=== PATIENT | male | born 1990 | race Caucasian/White ===

== ENCOUNTER 2016-08-30 15:50 | Inpatient (IN) ==
--- NOTE | 2016-08-30 17:35 | History & Physical Report ---
History of Present Illness Date: 08/30/16 HPI: Yosvany is a 25 y.o. male without any significant PMH who presents with 2-3 days of fatigue, general myalgia, fevers of 101, and mild headache that starts in his upper neck and comes around his head in the front. His fevers have been on and off for the last 2-3 days. Reports mild nausea but no vomiting. Also reports some pleuritic type pain bilaterally on the side of his chest. Denies any cp, sob, joint redness/swelling or rash. Reports he has been spending lots of time outdoors in the last few weeks as [place]. [place] He saw a tick crawling on him about a week ago but didn't think it bit him. He did have a tick bite 4 years ago that led to a target like appearing rash but no further work up or tx was done at that time. Denies any weight loss but does report night sweats in the last 2-3 days. No previous episodes such as this but has been told before once that he had low platelets but then at recheck they were fine. Denies neck pain or stiffness. Pt is completely alert and oriented. Pt does report taking ibuprofen but per directions on bottle. Review of Systems Review of systems: 12 point ros negative other then what is noted in HPI PFSH Patient Stated Medical History Asthma Yes: as a child Other Musculoskeletal Yes: hand tremors Shingles Yes: June 2016 - Social History Smoking status: Never smoker Medications Home Medications Medication Instructions Recorded Confirmed Type No known Home medications [No home 08/30/16 08/30/16 History meds] Allergies Allergy/AdvReac Type Severity Reaction Status Date / Time No Known Drug Allergies Allergy Unknown Unverified 08/30/16 16:32 Exam Vital Signs: Temp Pulse Resp BP Pulse Ox 100.9 F H 99 20 153/91 H 99 08/30/16 16:00 08/30/16 16:00 08/30/16 16:00 08/30/16 16:00 08/30/16 16:00 Height: 1.96 m Weight: 78.5 kg Body Mass Index: 20.5 - Constitutional Present: no acute distress, well nourished, well developed - Routine HEENT Exam Head: Present: normocephalic, atraumatic Eye: Present: EOMI ENT: Present: mucous membranes moist - Routine Respiratory Exam Present: CTA bilaterally. Absent: wheezes - Routine Cardiovascular Exam Present: RRR, no murmur - Routine Abdominal Exam Present: soft, non distended, non tender - Routine Extremities Exam Absent: cyanosis, clubbing, edema - Routine Back/Spine/Pelvis Exam Back/Spine: Present: full ROM - Routine Skin Exam Present: intact, dry. Absent: rash - Routine Neurological Exam Present: alert, oriented X3, moving all extremities. Absent: sensory deficit, motor deficit, tremors Results - Labs CBC & Chem 7: 08/30/16 17:11 08/30/16 17:11 Assessment and Plan (1) Thrombocytopenia Current visit: Yes Status: Acute (2) Leukopenia Current visit: Yes Status: Acute (3) Fever Current visit: Yes Status: Acute Assessment and Plan: Sepsis -Fever, leukopenia, tachycardia -Tick borne illness high on list with HPI and lab findings of leukopenia, thrombocytopenia -Order-->Erlichia/anaplasmosis pcr, blood cx's, lactate, procal, crp/esr, resp viral panel, CXR, UA -Will order lyme testing since had target like rash and tick bit few years ago -IV fluids, Start doxy 100 BID Pancytopenia -Leukopenia/Thrombocytopenia -Possibly 2/2 tick borne illness, pt did take ibuprofen in the last few days -Work per above, also order HIV, Hep panel, EBV, peripheral smear Ppx -DVT-SCD Sepsis Assessment - Evaluation Sepsis screening result: No Definite Risk Hospital Course Summary Disclaimer: The visit summary below is not to be considered part of the above Progress Note. Hospital Course: 08/30/16 18:00 Pt admitted with sepsis with tick borne illness high on ddx, will do work up for tick borne and other infection while starting tx for tick borne illness.
[2016-08-30] MEDS ORDERED: NS 1,000 ML IV ONE (17:43)
[2016-08-30] MEDS: ACETAMINOPHEN 325 MG TABLET PO PRN (19:17)
[2016-08-31] MEDS: ACETAMINOPHEN 325 MG TABLET PO PRN (08:08)
[2016-08-31] MEDS: 1/2 NS 1,000 ML IV SCH ×2 (09:36→17:37)
--- NOTE | 2016-08-31 10:32 | Progress Note ---
Subjective: Pt reports he feels better this am, no fevers overnight, night sweats improved as well. Denies any cp, sob, n/v/d. Objective Vital signs: Temp Pulse Resp BP Pulse Ox 99 F 93 21 117/68 98 08/31/16 08:00 08/31/16 08:59 08/31/16 08:59 08/31/16 09:00 08/31/16 08:59 Rhythm: Normal Sinus Rhythm Weight: 79.5 kg - Constitutional Present: no acute distress, well nourished, well developed - Routine HEENT Exam Head: Present: normocephalic, atraumatic Eye: Present: EOMI - Routine Respiratory Exam Present: CTA bilaterally. Absent: wheezes - Routine Cardiovascular Exam Present: RRR, no murmur - Routine Abdominal Exam Present: soft, non distended, non tender - Routine Extremities Exam Absent: cyanosis, clubbing, edema - Routine Skin Exam Present: intact, dry, warm. Absent: rash - Routine Neurological Exam Present: alert, oriented X3 Results - Labs CBC & Chem 7: 08/31/16 04:23 08/31/16 04:23 Assessment and Plan (1) Thrombocytopenia Current visit: Yes Status: Acute (2) Leukopenia Current visit: Yes Status: Acute (3) Fever Current visit: Yes Status: Acute Assessment and Plan: Sepsis -Fever, leukopenia, tachycardia-->improved -Tick borne illness high on list with HPI and lab findings of leukopenia, thrombocytopenia -Pending-->Erlichia/anaplasmosis pcr, blood cx's NGTD, resp viral panel, CXR -Will order lyme testing since had target like rash and tick bit few years ago -Resulted-->procal 0.39, lactate wnls, crp 21, ldh 581, UA unremarkable -Cont. IV fluids, doxy 100 BID D2 -Very low suspicion for meningitis-->No meningeal signs, completely alert & oriented despite >3 days of sx's, plts low so their is some risk with LP, will hold off for now Pancytopenia -Leukopenia/Thrombocytopenia -WBC-->2.1-->2.4 -ANC ~900 -Possibly 2/2 tick borne illness, pt did take ibuprofen in the last few days -Pending-->Hep panel, EBV, peripheral smear -Resulted-->HIV negative Mild Hypernatremia -Will do 1/2NS, monitor Ppx -DVT-SCD Sepsis Assessment - Evaluation Sepsis screening result: No Definite Risk Hospital Course Summary Disclaimer: The visit summary below is not to be considered part of the above Progress Note. Hospital Course: 08/30/16 18:00 Pt admitted with sepsis with tick borne illness high on ddx, will do work up for tick borne and other infection while starting tx for tick borne illness. 08/31/16 10:32 Pt seems to be improving on doxycycline, will move to floor, cont. to monitor labs and f/u on work up ordered.
[2016-09-01] MEDS ORDERED: D5W 1,000 ML IV SCH (09:30)
--- NOTE | 2016-09-01 14:34 | Progress Note ---
Subjective: Pt doing better, reports he feels better then when he came in. No fevers since starting doxy. Still having a light headache but otherwise no n/v/d, f/c. Objective Vital signs: Temp Pulse Resp BP Pulse Ox 96.9 F 83 16 139/81 99 09/01/16 12:00 09/01/16 12:00 09/01/16 12:00 09/01/16 12:00 09/01/16 12:00 Weight: 79.4 kg - Constitutional Present: no acute distress, well nourished, well developed - Routine HEENT Exam Head: Present: normocephalic, atraumatic Eye: Present: EOMI ENT: Present: mucous membranes moist - Routine Respiratory Exam Present: CTA bilaterally. Absent: wheezes - Routine Cardiovascular Exam Present: RRR, no murmur - Routine Abdominal Exam Present: soft, non distended, non tender - Routine Extremities Exam Present: no edema. Absent: cyanosis, clubbing - Routine Skin Exam Present: intact, dry. Absent: rash - Routine Neurological Exam Present: alert, oriented X3 Results - Labs CBC & Chem 7: 09/01/16 04:53 09/01/16 12:44 Assessment and Plan (1) Thrombocytopenia Current visit: Yes Status: Acute (2) Leukopenia Current visit: Yes Status: Acute (3) Fever Current visit: Yes Status: Acute Assessment and Plan: Sepsis likely 2/2 tick borne illness -Sepsis resolved, pt seems to be improving with doxy -Tick borne illness likely with HPI and lab findings of leukopenia, thrombocytopenia -Pending-->Erlichia/anaplasmosis pcr, blood cx's NGTD, resp viral panel, CXR -Will order lyme testing since had target like rash and tick bit few years ago -Resulted-->procal 0.39, lactate wnls, crp 21, ldh 581, UA unremarkable -Cont. IV fluids, doxy 100 BID D3 -initially admitted for meningitis but I have very low suspicion for meningitis- ->No meningeal signs, completely alert & oriented despite >3 days of sx's on admission, plts were low so their is some risk with LP, will hold off for now -Discussed case with of ID, agrees with current tx plan and recommends continuing to monitor pt for additional 1-2 days in the hospital Pancytopenia -Leukopenia/Thrombocytopenia -WBC-->2.1-->2.4-->2.5 -ANC 925 -Possibly 2/2 tick borne illness, pt did take ibuprofen in the last few days -Pending-->Hep panel, peripheral smear -Resulted-->HIV negative, EBV negative -Consulted of Hem/onc for further recs Mild Hypernatremia -Will do D5, monitor Ppx -DVT-SCD Sepsis Assessment - Evaluation Sepsis screening result: No Definite Risk Hospital Course Summary Disclaimer: The visit summary below is not to be considered part of the above Progress Note. Hospital Course: 08/30/16 18:00 Pt admitted with sepsis with tick borne illness high on ddx, will do work up for tick borne and other infection while starting tx for tick borne illness. 08/31/16 10:32 Pt seems to be improving on doxycycline, will move to floor, cont. to monitor labs and f/u on work up ordered. 09/01/16 14:34 Pt seems to be improving on doxycycline, discussed case with and she agrees with the likely dx of tick borne disease and recommends monitoring pt for another 1-2 days to see improvement, also consulted hem/onc to see if any other etiology of pancytopenia should be considered.
--- NOTE | 2016-09-01 16:00 | Consult Note ---
Oncology HPI - Data of Consult Patient: new to practice Consult date: 09/01/16 Requesting Physician: Deana So MD Primary Care Provider: Javy Bowman MD Family Provider: Javy Bowman MD - Consult Narrative Reason for consult: thrombocytopenia, leukopenia History of present illness: 25-year-old male, new patient to Dr. Liao presented to his PCP with complaints of fatigue, general myalgia and fever, started Monday and persisted. Intermittent nausea, no emesis. Has spent a lot of time outdoors the past few weeks. On Monday, day before illness started was at a local [employer] swimming. No known exposure to tick bite. Was admitted to [facility] after noted to have significant leukopenia/thrombocytopenia. Infectious workup is pending. Peripheral smear has been done and the results pending. At time of intake, reclining in hospital bed alone in room. He is alert and oriented. Denies weight change. Fever as noted earlier, no chills. Night sweats for the past 2-3 days. Complains of intermittent headaches and feels pressure behind both eyes. States walked in brown earlier and if turns head quickly, will get dizzy and nauseous. Denies vision changes or diplopia. No sore throat, earache, nasal drainage or other signs of infection. No cough or shortness of air. He is eating and drinking normally. No abdominal pain. Normal voiding and normal stooling, last BM yesterday. Also reports after he got up to go the bathroom today, had aching bilateral legs after he been up to the bathroom, this lasted for about 30 minutes. Denies back pain, hip pain or other aches or pains. Generalized aching when has fever. Review of Systems - Constitutional Constitutional: Present: fever(s), headache(s), night sweats - EENT Eyes: Present: as per HPI. Absent: blurry vision, loss of vision, photophobia Ears: Absent: ear pain - Cardiovascular Cardiovascular: Absent: chest pain, dyspnea on exertion - Respiratory Respiratory: Absent: cough, dyspnea on exertion - Gastrointestinal Gastrointestinal: Present: nausea. Absent: abdominal pain, change in bowel habits - Genitourinary Genitourinary: Absent: hematuria - Musculoskeletal Musculoskeletal: Present: arthralgias - Neurological Neurological: Present: dizziness, headache(s). Absent: abnormal gait - Psychiatric Psychiatric: Absent: anxiety, depression [facility] Patient Stated Medical History Asthma Yes: as a child Other Musculoskeletal Yes: hand tremors Shingles Yes: June 2016 Family History: Paternal grandfather of an unknown cancer age 78 Maternal aunt questionable ovarian cyst versus ovarian cancer- well currently No anemia or blood disorders - Social History Smoking status: Never smoker Medications Home Medications Medication Instructions Recorded Confirmed Type No known Home medications [No home 08/30/16 08/30/16 History meds] Allergies Allergy/AdvReac Type Severity Reaction Status Date / Time No Known Drug Allergies Allergy Unknown Unverified 08/30/16 16:32 Exam Vital signs: Temp Pulse Resp BP Pulse Ox 97.4 F 89 14 121/73 99 09/01/16 15:15 09/01/16 15:15 09/01/16 15:15 09/01/16 15:15 09/01/16 15:15 - Constitutional no acute distress, well nourished, well developed - Routine HEENT Exam Head: Present: normocephalic. Absent: facial swelling Eye: Present: EOMI, PERRL ENT: Present: mucous membranes moist, oropharynx clear. Absent: sinus tenderness - Routine Neck Exam Present: supple. Absent: lymphadenopathy, tenderness - Routine Respiratory Exam Present: CTA bilaterally. Absent: dyspnea - Routine Cardiovascular Exam Present: RRR, tachycardia (mild). Absent: murmur, gallop - Routine Abdominal Exam Present: soft, normoactive bowel sounds. Absent: tenderness, non distended, organomegaly - Routine Extremities Exam Present: full ROM. Absent: cyanosis, no edema - Routine Back/Spine/Pelvis Exam Back/Spine: Absent: paraspinal tenderness, vertebral tenderness - Routine Skin Exam Present: intact. Absent: petechiae, rash - Routine Neurological Exam Present: alert, oriented X3, CN II-XII intact, moving all extremities - Routine Psychiatric Exam Present: normal affect, normal thought process Oncology Results - Labs CBC & Chem 7: 09/01/16 04:53 09/01/16 12:44 Labs: Short CBC 09/01/16 Range/Units 04:53 WBC 2.5 L (4.5-11.0) T/MM3 Hgb 15.3 (13.5-17.5) GM/DL Hct 44.7 (41-53) % Plt Count 94 L (130-400) T/MM3 BMP 06/21/17 06/22/17 06/22/17 19:43 04:53 12:44 Sodium 145 H 145 H 145 H Potassium 3.9 Chloride 104 Carbon Dioxide 27 BUN 11.0 Creatinine 1.1 Glucose 98 Calcium 9.5 Liver Function 09/01/16 Range/Units 04:53 Albumin 4.5 (3.5-5.0) G/DL Assessment and Plan (1) Fever Start date: 09/01/16 (highest temperature past 24 hours 100.3 at 12 AM today.) Current visit: Yes Status: Acute (2) Leukopenia Current visit: Yes Status: Acute (3) Thrombocytopenia Current visit: Yes Status: Acute Assessment and Plan: Infectious workup pending. Peripheral smear results pending.Dr. Liao to see patient later today. Sepsis Assessment - Evaluation Sepsis screening result: No Definite Risk
[2016-09-01] MEDS: D5W 1,000 ML IV SCH (17:39)
--- NOTE | 2016-09-01 18:20 | Consult Note ---
Oncology HPI - Data of Consult Requesting Physician: Deana So MD Primary Care Provider: Javy Bowman MD Family Provider: Javy Bowman MD - Consult Narrative History of present illness: 25-year-old male, new patient to Dr. Liao presented to his PCP with complaints of fatigue, general myalgia and fever, started Monday and persisted. Intermittent nausea, no emesis. Has spent a lot of time outdoors the past few weeks. On Monday, day before illness started [place]. No known exposure to tick bite. Was admitted to [facility] after noted to have significant leukopenia/thrombocytopenia. Infectious workup is pending. Peripheral smear has been done and the results pending. At time of intake, reclining in hospital bed alone in room. He is alert and oriented. Denies weight change. Fever as noted earlier, no chills. Night sweats for the past 2-3 days. Complains of intermittent headaches and feels pressure behind both eyes. States walked in [place] earlier and if turns head quickly, will get dizzy and nauseous. Denies vision changes or diplopia. No sore throat, earache, nasal drainage or other signs of infection. No cough or shortness of air. He is eating and drinking normally. No abdominal pain. Normal voiding and normal stooling, last BM yesterday. Also reports after he got up to go the bathroom today, had aching bilateral legs after he been up to the bathroom, this lasted for about 30 minutes. Denies back pain, hip pain or other aches or pains. Generalized aching when has fever. [facility] Patient Stated Medical History Asthma Yes: as a child Other Musculoskeletal Yes: hand tremors Shingles Yes: June 2016 - Social History Smoking status: Never smoker Medications Home Medications Medication Instructions Recorded Confirmed Type No known Home medications [No home 08/30/16 08/30/16 History meds] Allergies Allergy/AdvReac Type Severity Reaction Status Date / Time No Known Drug Allergies Allergy Unknown Verified 09/01/16 16:44 Exam Vital signs: Temp Pulse Resp BP Pulse Ox 97.4 F 89 14 121/73 99 09/01/16 15:15 09/01/16 15:15 09/01/16 15:15 09/01/16 15:15 09/01/16 15:15 Oncology Results - Labs CBC & Chem 7: 09/01/16 04:53 09/01/16 17:04 Labs: Short CBC 09/01/16 Range/Units 04:53 WBC 2.5 L (4.5-11.0) T/MM3 Hgb 15.3 (13.5-17.5) GM/DL Hct 44.7 (41-53) % Plt Count 94 L (130-400) T/MM3 BMP 08/31/16 09/01/16 09/01/16 19:43 04:53 12:44 Sodium 145 H 145 H 145 H Potassium 3.9 Chloride 104 Carbon Dioxide 27 BUN 11.0 Creatinine 1.1 Glucose 98 Calcium 9.5 09/01/16 17:04 Sodium 146 H Potassium Chloride Carbon Dioxide BUN Creatinine Glucose Calcium Liver Function 09/01/16 Range/Units 04:53 Albumin 4.5 (3.5-5.0) G/DL Laboratory Tests 08/30/16 08/30/16 08/30/16 17:11 17:11 18:09 WBC 2.1 L Hgb 15.7 Plt Count 87 L Neut % (Auto) Lymph % (Auto) 27.3 [place] % (Auto) Neut # 1.1 L Sodium 147 H Potassium Creatinine Total Bilirubin 1.90 H ALT 82 H C-Reactive Protein 20.9 H Globulin 2.6 08/31/16 08/31/16 08/31/16 04:23 04:23 12:58 WBC 2.4 L Hgb 15.1 Plt Count 83 L Neut % (Auto) Lymph % (Auto) [place] % (Auto) Neut # 0.9 L Sodium 146 H 146 H Potassium Creatinine 1.1 Total Bilirubin 1.80 H ALT 81 H C-Reactive Protein Globulin 2.2 L 08/31/16 09/01/16 09/01/16 19:43 04:53 04:53 WBC 2.5 L Hgb 15.3 Plt Count 94 L Neut % (Auto) 37.6 Lymph % (Auto) 42.0 [place] % (Auto) 18.8 H Neut # 0.9 L Sodium 145 H 145 H Potassium 3.9 Creatinine 1.1 Total Bilirubin ALT C-Reactive Protein Globulin 09/01/16 09/01/16 12:44 17:04 WBC Hgb Plt Count Neut % (Auto) Lymph % (Auto) [place] % (Auto) Neut # Sodium 145 H 146 H Potassium Creatinine Total Bilirubin ALT C-Reactive Protein Globulin Assessment and Plan (1) Thrombocytopenia Current visit: Yes Status: Acute (2) Leukopenia Current visit: Yes Status: Acute (3) Fever Current visit: Yes Status: Acute Assessment and Plan: This is part of documentation from Corrine Moses earlier today. It will be a separate note because of IT issues I am not able to access that note. #1 leukopenia with neutropenia of uncertain etiology. This is following a viral prodrome associated with headache, eye pain, myalgias this is most consistent with a viral illness. He did having episode of swimming on Monday. This could be associated with tickborne illnesses, mosquito born illness, West Nile, parvovirus B19, hepatitis or mononucleosis. It is associated with thrombocytopenia. The thrombocytopenia appears to be improving. Peripheral smear is currently pending. Viral PCR is currently pending. Currently symptoms of the patient are improving with less headache. There is also less pain with eye movement. Recommendations supportive care Await serology and PCR for viral illnesses Follow CBC and LDH Sepsis Assessment - Evaluation Sepsis screening result: No Definite Risk
[2016-09-02] MEDS: D5W 1,000 ML IV SCH (07:52)
[2016-09-02] MEDS ORDERED: ACETAMINOPHEN 325 MG TABLET PO PRN (11:44)
--- NOTE | 2016-09-02 12:36 | Progress Note ---
Subjective: Pt doing well this am, reports headache is improved, no fevers or night sweats for since admission. Objective Vital signs: Temp Pulse Resp BP Pulse Ox 96 F L 87 16 125/72 98 09/02/16 09:30 09/02/16 09:30 09/02/16 09:30 09/02/16 09:30 09/02/16 09:30 Weight: 79.5 kg - Constitutional Present: no acute distress, well nourished, well developed - Routine HEENT Exam Head: Present: normocephalic, atraumatic Eye: Present: EOMI ENT: Present: mucous membranes moist - Routine Respiratory Exam Present: CTA bilaterally. Absent: wheezes - Routine Cardiovascular Exam Present: RRR, no murmur - Routine Abdominal Exam Present: soft, non distended, non tender - Routine Extremities Exam Present: no edema. Absent: cyanosis, clubbing - Routine Skin Exam Present: intact, dry, warm - Routine Neurological Exam Present: alert, oriented X3 Results - Labs CBC & Chem 7: 09/02/16 04:30 09/02/16 04:30 Assessment and Plan (1) Thrombocytopenia Current visit: Yes Status: Acute (2) Leukopenia Current visit: Yes Status: Acute (3) Fever Current visit: Yes Status: Acute Assessment and Plan: Sepsis likely 2/2 tick borne illness -Sepsis resolved, pt seems to be doing much better with doxy -Tick borne illness likely with HPI and lab findings of leukopenia, thrombocytopenia -Pending-->Erlichia/anaplasmosis pcr, blood cx's NGTD -Will order lyme testing since had target like rash and tick bit few years ago -Resulted-->procal 0.39, lactate wnls, crp 21, ldh 581, UA unremarkable, CXR report from OSH wnls, Viral resp neg -Doxy 100 BID D4 -initially admitted for meningitis but I have very low suspicion for meningitis- ->No meningeal signs, completely alert & oriented despite >3 days of sx's on admission, plts were low so their is some risk with LP, will hold off for now -Discussed case with of ID, agrees with current tx plan Pancytopenia -Leukopenia/Thrombocytopenia -WBC-->2.1-->2.4-->2.5-->2.7 -ANC 925-->891 today -Possibly 2/2 tick borne illness, pt did take ibuprofen in the last few days -Pending-->peripheral smear, parvo B19, [place] -Resulted-->HIV negative, EBV negative, hep panel negative -Consulted -->He has some concern for viral etiology and ordered further testing Mild Hypernatremia -Will do D5, monitor Ppx -DVT-SCD Sepsis Assessment - Evaluation Sepsis screening result: Sepsis Risk Hospital Course Summary Disclaimer: The visit summary below is not to be considered part of the above Progress Note. Hospital Course: 08/30/16 18:00 Pt admitted with sepsis with tick borne illness high on ddx, will do work up for tick borne and other infection while starting tx for tick borne illness. 08/31/16 10:32 Pt seems to be improving on doxycycline, will move to floor, cont. to monitor labs and f/u on work up ordered. 09/01/16 14:34 Pt seems to be improving on doxycycline, discussed case with and she agrees with the likely dx of tick borne disease and recommends monitoring pt for another 1-2 days to see improvement, also consulted hem/onc to see if any other etiology of pancytopenia should be considered. 09/02/16 12:36 Pt improving, hem/onc added more testing for viral etiologies, will discuss case with of ID and to come up with discharge plan for today or tomorrow.
--- NOTE | 2016-09-02 13:16 | Discharge Summary ---
Discharge Plan - Med Rec/Dispo Additional Instructions: Follow-up on 09/09/16 with CBC, CMP, LDH at our office. Prescriptions: No Action No known Home medications [No home meds] 0 #0 misc - Disposition 01 Discharged Home, Self-Care
--- NOTE | 2016-09-02 14:53 | Discharge Summary ---
Discharge Information Date of admission: 08/30/16 15:50 Anticipated date of discharge: 09/02/16 Attending Physician: Deana So MD Primary care physician: Javy Bowman MD Consults: 09/01/16 10:44 Physician Consult [CONS] Routine Consulting Provider: Sancho Liao Reason For Exam: pancytopenia Ordering Provider has Notified Receiving Lead: Yes 09/02/16 11:38 Physician Consult [CONS] Routine Consulting Provider: Barbara Fischer Reason For Exam: infection Ordering Provider has Notified Receiving Lead: No - Discharge Diagnosis (1) Tick-borne disease Status: Acute (2) Thrombocytopenia Status: Acute (3) Leukopenia Status: Acute (4) Fever Status: Resolved - Laboratory Labs: 09/02/16 04:30 09/02/16 04:30 Laboratory Tests 08/30/16 08/30/16 08/30/16 17:11 17:11 18:09 WBC 2.1 L RBC 5.50 Hgb 15.7 Hct 45.6 MCV 82.9 MCH 28.5 MCHC 34.4 RDW Std Deviation 41.0 Plt Count 87 L MPV 12.4 Immature Gran % (Auto) 1.0 H Neut % (Auto) 53.1 Lymph % (Auto) 27.3 [place] % (Auto) 16.7 H Eos % (Auto) 0.5 Baso % (Auto) 1.4 Neut # 1.1 L Lymph # 0.6 L [place] # 0.4 Eos # 0.0 Baso # 0.0 Abs Immat Gran (auto) 0.02 Smear Path Review ESR Turbidity < 20 Sodium 147 H Potassium 4.0 Chloride 106 Carbon Dioxide 27 Anion Gap 14 BUN 10.0 Creatinine 1.0 GFR Calculation 91 BUN/Creatinine Ratio 10 Glucose 91 Calculated Osmolality 281 H Calcium 9.5 Phosphorus Magnesium 1.9 Total Bilirubin 1.90 H Icterus Index < 2 AST 50 ALT 82 H Alkaline Phosphatase 71 Lactate Dehydrogenase 581 Creatine Kinase C-Reactive Protein Total Protein 7.3 Albumin 4.7 Globulin 2.6 Albumin/Globulin Ratio 1.8 Plasma Lactate Procalcitonin Specimen Hemolysis 18 Ur Collection Type Urine Color Urine Clarity Urine pH Ur Specific [place] Urine Protein Urine Glucose (UA) Urine Ketones Urine Occult Blood Urine Nitrate Urine Bilirubin Urine Urobilinogen Ur Leukocyte Esterase Urine RBC Urine WBC Ur Squamous Epith Cells Urine Bacteria Ur Culture Indicated? Adenovirus (PCR) B.parapertussis DNA PCR Lyme Total Antibody C. pneumoniae DNA (PCR) Coronavirus OC43 (PCR) Coronavirus HKU1 (PCR) Coronavirus 229E (PCR) Coronavirus NL63 (PCR) Hepatitis A IgM Ab Negative Hep Bs Antigen Negative Hep B Core IgM Ab Negative Hepatitis C Antibody Negative HIV 1&2 Antibody Rapid Human Metapneumovirus Influenza Type A (PCR) Influenza Type B (PCR) M. pneumoniae (PCR) Parainfluenza 1 (PCR) Parainfluenza 2 (PCR) Parainfluenza 3 (PCR) Parainfluenza 4 (PCR) RSV (PCR) Entero/Rhino (PCR) 08/30/16 08/30/16 08/30/16 18:09 18:09 18:18 WBC RBC Hgb Hct MCV MCH MCHC RDW Std Deviation Plt Count MPV Immature Gran % (Auto) Neut % (Auto) Lymph % (Auto) [place] % (Auto) Eos % (Auto) Baso % (Auto) Neut # Lymph # [place] # Eos # Baso # Abs Immat Gran (auto) Smear Path Review ESR Turbidity Sodium Potassium Chloride Carbon Dioxide Anion Gap BUN Creatinine GFR Calculation BUN/Creatinine Ratio Glucose Calculated Osmolality Calcium Phosphorus Magnesium Total Bilirubin Icterus Index AST ALT Alkaline Phosphatase Lactate Dehydrogenase Creatine Kinase 59 C-Reactive Protein 20.9 H Total Protein Albumin Globulin Albumin/Globulin Ratio Plasma Lactate 0.9 Procalcitonin 0.39 Specimen Hemolysis Ur Collection Type Urine Color Urine Clarity Urine pH Ur Specific [place] Urine Protein Urine Glucose (UA) Urine Ketones Urine Occult Blood Urine Nitrate Urine Bilirubin Urine Urobilinogen Ur Leukocyte Esterase Urine RBC Urine WBC Ur Squamous Epith Cells Urine Bacteria Ur Culture Indicated? Adenovirus (PCR) B.parapertussis DNA PCR Lyme Total Antibody C. pneumoniae DNA (PCR) Coronavirus OC43 (PCR) Coronavirus HKU1 (PCR) Coronavirus 229E (PCR) Coronavirus NL63 (PCR) Hepatitis A IgM Ab Hep Bs Antigen Hep B Core IgM Ab Hepatitis C Antibody HIV 1&2 Antibody Rapid Negative Human Metapneumovirus Influenza Type A (PCR) Influenza Type B (PCR) M. pneumoniae (PCR) Parainfluenza 1 (PCR) Parainfluenza 2 (PCR) Parainfluenza 3 (PCR) Parainfluenza 4 (PCR) RSV (PCR) Entero/Rhino (PCR) 08/30/16 08/30/16 08/30/16 18:18 18:18 19:21 WBC RBC Hgb Hct MCV MCH MCHC RDW Std Deviation Plt Count MPV Immature Gran % (Auto) Neut % (Auto) Lymph % (Auto) [place] % (Auto) Eos % (Auto) Baso % (Auto) Neut # Lymph # [place] # Eos # Baso # Abs Immat Gran (auto) Smear Path Review Sent for review ESR 2 Turbidity Sodium Potassium Chloride Carbon Dioxide Anion Gap BUN Creatinine GFR Calculation BUN/Creatinine Ratio Glucose Calculated Osmolality Calcium Phosphorus Magnesium Total Bilirubin Icterus Index AST ALT Alkaline Phosphatase Lactate Dehydrogenase Creatine Kinase C-Reactive Protein Total Protein Albumin Globulin Albumin/Globulin Ratio Plasma Lactate Procalcitonin Specimen Hemolysis Ur Collection Type Not provided Urine Color Yellow Urine Clarity Clear Urine pH 6.0 Ur Specific [place] <=1.005 L Urine Protein Negative Urine Glucose (UA) Negative Urine Ketones Negative Urine Occult Blood Negative Urine Nitrate Negative Urine Bilirubin Negative Urine Urobilinogen 0.2 Ur Leukocyte Esterase Negative Urine RBC None seen Urine WBC None seen Ur Squamous Epith Cells 5-10 Urine Bacteria None seen Ur Culture Indicated? Cult not indicated Adenovirus (PCR) B.parapertussis DNA PCR Lyme Total Antibody Negative C. pneumoniae DNA (PCR) Coronavirus OC43 (PCR) Coronavirus HKU1 (PCR) Coronavirus 229E (PCR) Coronavirus NL63 (PCR) Hepatitis A IgM Ab Hep Bs Antigen Hep B Core IgM Ab Hepatitis C Antibody HIV 1&2 Antibody Rapid Human Metapneumovirus Influenza Type A (PCR) Influenza Type B (PCR) M. pneumoniae (PCR) Parainfluenza 1 (PCR) Parainfluenza 2 (PCR) Parainfluenza 3 (PCR) Parainfluenza 4 (PCR) RSV (PCR) Entero/Rhino (PCR) 08/30/16 08/31/16 08/31/16 22:00 04:23 04:23 WBC 2.4 L RBC 5.37 Hgb 15.1 Hct 44.8 MCV 83.4 MCH 28.1 MCHC 33.7 RDW Std Deviation 41.8 Plt Count 83 L MPV 12.2 Immature Gran % (Auto) 0.0 Neut % (Auto) 37.8 Lymph % (Auto) 41.1 [place] % (Auto) 19.5 H Eos % (Auto) 0.8 Baso % (Auto) 0.8 Neut # 0.9 L Lymph # 1.0 [place] # 0.5 Eos # 0.0 Baso # 0.0 Abs Immat Gran (auto) 0.00 Smear Path Review ESR Turbidity < 20 Sodium 146 H Potassium 4.0 Chloride 106 Carbon Dioxide 28 Anion Gap 12 BUN 11.0 Creatinine 1.1 GFR Calculation 82 BUN/Creatinine Ratio 10 Glucose 95 Calculated Osmolality 280 Calcium 9.3 Phosphorus Magnesium Total Bilirubin 1.80 H Icterus Index < 2 AST 58 ALT 81 H Alkaline Phosphatase 75 Lactate Dehydrogenase Creatine Kinase C-Reactive Protein Total Protein 6.5 Albumin 4.3 Globulin 2.2 L Albumin/Globulin Ratio 2.0 Plasma Lactate 0.7 Procalcitonin Specimen Hemolysis < 15 Ur Collection Type Urine Color Urine Clarity Urine pH Ur Specific [place] Urine Protein Urine Glucose (UA) Urine Ketones Urine Occult Blood Urine Nitrate Urine Bilirubin Urine Urobilinogen Ur Leukocyte Esterase Urine RBC Urine WBC Ur Squamous Epith Cells Urine Bacteria Ur Culture Indicated? Adenovirus (PCR) B.parapertussis DNA PCR [place] Total Antibody C. pneumoniae DNA (PCR) Coronavirus OC43 (PCR) Coronavirus HKU1 (PCR) Coronavirus 229E (PCR) Coronavirus NL63 (PCR) Hepatitis A IgM Ab Hep Bs Antigen Hep B Core IgM Ab Hepatitis C Antibody HIV 1&2 Antibody Rapid Human Metapneumovirus Influenza Type A (PCR) Influenza Type B (PCR) M. pneumoniae (PCR) Parainfluenza 1 (PCR) Parainfluenza 2 (PCR) Parainfluenza 3 (PCR) Parainfluenza 4 (PCR) RSV (PCR) Entero/Rhino (PCR) 08/31/16 08/31/16 08/31/16 12:58 14:03 19:43 WBC RBC Hgb Hct MCV MCH MCHC RDW Std Deviation Plt Count MPV Immature Gran % (Auto) Neut % (Auto) Lymph % (Auto) [place] % (Auto) Eos % (Auto) Baso % (Auto) Neut # Lymph # [place] # Eos # Baso # Abs Immat Gran (auto) Smear Path Review ESR Turbidity Sodium 146 H 145 H Potassium Chloride Carbon Dioxide Anion Gap BUN Creatinine GFR Calculation BUN/Creatinine Ratio Glucose Calculated Osmolality Calcium Phosphorus Magnesium Total Bilirubin Icterus Index AST ALT Alkaline Phosphatase Lactate Dehydrogenase Creatine Kinase C-Reactive Protein Total Protein Albumin Globulin Albumin/Globulin Ratio Plasma Lactate Procalcitonin Specimen Hemolysis Ur Collection Type Urine Color Urine Clarity Urine pH Ur Specific [place] Urine Protein Urine Glucose (UA) Urine Ketones Urine Occult Blood Urine Nitrate Urine Bilirubin Urine Urobilinogen Ur Leukocyte Esterase Urine RBC Urine WBC Ur Squamous Epith Cells Urine Bacteria Ur Culture Indicated? Adenovirus (PCR) Negative B.parapertussis DNA PCR Negative [place] Total Antibody C. pneumoniae DNA (PCR) Negative Coronavirus OC43 (PCR) Negative Coronavirus HKU1 (PCR) Negative Coronavirus 229E (PCR) Negative Coronavirus NL63 (PCR) Negative Hepatitis A IgM Ab Hep Bs Antigen Hep B Core IgM Ab Hepatitis C Antibody HIV 1&2 Antibody Rapid Human Metapneumovirus Negative Influenza Type A (PCR) Negative Influenza Type B (PCR) Negative M. pneumoniae (PCR) Negative Parainfluenza 1 (PCR) Negative Parainfluenza 2 (PCR) Negative Parainfluenza 3 (PCR) Negative Parainfluenza 4 (PCR) Negative RSV (PCR) Negative Entero/Rhino (PCR) Negative 09/01/16 09/01/16 09/01/16 04:53 04:53 12:44 WBC 2.5 L RBC 5.41 Hgb 15.3 Hct 44.7 MCV 82.6 MCH 28.3 MCHC 34.2 RDW Std Deviation 40.9 Plt Count 94 L MPV 11.9 Immature Gran % (Auto) 0.0 Neut % (Auto) 37.6 Lymph % (Auto) 42.0 [place] % (Auto) 18.8 H Eos % (Auto) 0.8 Baso % (Auto) 0.8 Neut # 0.9 L Lymph # 1.0 [place] # 0.5 Eos # 0.0 Baso # 0.0 Abs Immat Gran (auto) 0.00 Smear Path Review ESR Turbidity < 20 Sodium 145 H 145 H Potassium 3.9 Chloride 104 Carbon Dioxide 27 Anion Gap 14 BUN 11.0 Creatinine 1.1 GFR Calculation 82 BUN/Creatinine Ratio 10 Glucose 98 Calculated Osmolality 278 Calcium 9.5 Phosphorus 4.0 Magnesium 1.8 Total Bilirubin Icterus Index < 2 AST ALT Alkaline Phosphatase Lactate Dehydrogenase Creatine Kinase C-Reactive Protein Total Protein Albumin 4.5 Globulin Albumin/Globulin Ratio Plasma Lactate Procalcitonin Specimen Hemolysis < 15 Ur Collection Type Urine Color Urine Clarity Urine pH Ur Specific [place] Urine Protein Urine Glucose (UA) Urine Ketones Urine Occult Blood Urine Nitrate Urine Bilirubin Urine Urobilinogen Ur Leukocyte Esterase Urine RBC Urine WBC Ur Squamous Epith Cells Urine Bacteria Ur Culture Indicated? Adenovirus (PCR) B.parapertussis DNA PCR [place] Total Antibody C. pneumoniae DNA (PCR) Coronavirus OC43 (PCR) Coronavirus HKU1 (PCR) Coronavirus 229E (PCR) Coronavirus NL63 (PCR) Hepatitis A IgM Ab Hep Bs Antigen Hep B Core IgM Ab Hepatitis C Antibody HIV 1&2 Antibody Rapid Human Metapneumovirus Influenza Type A (PCR) Influenza Type B (PCR) M. pneumoniae (PCR) Parainfluenza 1 (PCR) Parainfluenza 2 (PCR) Parainfluenza 3 (PCR) Parainfluenza 4 (PCR) RSV (PCR) Entero/Rhino (PCR) 09/01/16 09/02/16 09/02/16 17:04 04:30 04:30 WBC 2.7 L RBC 5.36 Hgb 15.0 Hct 44.1 MCV 82.3 MCH 28.0 MCHC 34.0 RDW Std Deviation 41.2 Plt Count 105 L MPV 12.0 Immature Gran % (Auto) 0.0 Neut % (Auto) 33.6 Lymph % (Auto) 44.4 [place] % (Auto) 19.8 H Eos % (Auto) 1.5 Baso % (Auto) 0.7 Neut # 0.9 L Lymph # 1.2 [place] # 0.5 Eos # 0.0 Baso # 0.0 Abs Immat Gran (auto) 0.00 Smear Path Review ESR Turbidity < 20 Sodium 146 H 144 Potassium 4.1 Chloride 104 Carbon Dioxide 27 Anion Gap 13 BUN 13.0 Creatinine 0.9 D GFR Calculation 103 BUN/Creatinine Ratio 14 Glucose 96 Calculated Osmolality 277 Calcium 9.4 Phosphorus 4.6 H Magnesium Total Bilirubin Icterus Index < 2 AST ALT Alkaline Phosphatase Lactate Dehydrogenase Creatine Kinase C-Reactive Protein Total Protein Albumin 4.5 Globulin Albumin/Globulin Ratio Plasma Lactate Procalcitonin Specimen Hemolysis < 15 Ur Collection Type Urine Color Urine Clarity Urine pH Ur Specific [place] Urine Protein Urine Glucose (UA) Urine Ketones Urine Occult Blood Urine Nitrate Urine Bilirubin Urine Urobilinogen Ur Leukocyte Esterase Urine RBC Urine WBC Ur Squamous Epith Cells Urine Bacteria Ur Culture Indicated? Adenovirus (PCR) B.parapertussis DNA PCR [place] Total Antibody C. pneumoniae DNA (PCR) Coronavirus OC43 (PCR) Coronavirus HKU1 (PCR) Coronavirus 229E (PCR) Coronavirus NL63 (PCR) Hepatitis A IgM Ab Hep Bs Antigen Hep B Core IgM Ab Hepatitis C Antibody HIV 1&2 Antibody Rapid Human Metapneumovirus Influenza Type A (PCR) Influenza Type B (PCR) M. pneumoniae (PCR) Parainfluenza 1 (PCR) Parainfluenza 2 (PCR) Parainfluenza 3 (PCR) Parainfluenza 4 (PCR) RSV (PCR) Entero/Rhino (PCR) Microbiology 08/30/16 18:18 Peripheral/Iv Start Blood Culture - Preliminary No Growth After 2 Days 08/30/16 18:08 Peripheral/Iv Start Blood Culture - Preliminary No Growth After 2 Days 08/30/16 18:18 Blood Dwayne-Michelle Virus DNA (PCR) (ROSINA) - Final Vital Signs Temp 96 F L 09/02/16 09:30 Pulse 87 09/02/16 09:30 Resp 16 09/02/16 09:30 BP 125/72 09/02/16 09:30 Pulse Ox 98 09/02/16 09:30 Intake & Output 09/01/16 09/02/16 09/02/16 18:59 06:59 18:59 Intake Total 1935 / 1935 2157.5 / 2157.5 1820 / 1820 Balance 1935 / 1935 2157.5 / 2157.5 1820 / 1820 Weight 79.4 kg 79.5 kg Intake: IV 975 / 975 657.5 / 657.5 Dextrose 5% in Water 1, 975 / 975 657.5 / 657.5 000 ml @ 150 mls/hr IV . Q6H40M [facility] Rx#:[id number] Oral 960 / 960 1500 / 1500 1820 / 1820 Other: # Voids 2 1 - Microbiology Microbiology 08/30/16 18:18 Peripheral/Iv Start Blood Culture - Preliminary No Growth After 2 Days 08/30/16 18:08 Peripheral/Iv Start Blood Culture - Preliminary No Growth After 2 Days 08/30/16 18:18 Blood Dwayne-Michelle Virus DNA (PCR) (ROSINA) - Final History of Present Illness HPI: Yosvany is a 25 y.o. male without any significant PMH who presents with 2-3 days of fatigue, general myalgia, fevers of 101, and mild headache that starts in his upper neck and comes around his head in the front. His fevers have been on and off for the last 2-3 days. Reports mild nausea but no vomiting. Also reports some pleuritic type pain bilaterally on the side of his chest. Denies any cp, sob, joint redness/swelling or rash. Reports he has been spending lots of time outdoors in the last few weeks as [place]. [place]. He saw a tick crawling on him about a week ago but didn't think it bit him. He did have a tick bite 4 years ago that led to a target like appearing rash but no further work up or tx was done at that time. Denies any weight loss but does report night sweats in the last 2-3 days. No previous episodes such as this but has been told before once that he had low platelets but then at recheck they were fine. Denies neck pain or stiffness. Pt is completely alert and oriented. Pt does report taking ibuprofen but per directions on bottle. Hospital Course Hospital course: Brief Summary was admitted from the clinic for concern for meningitis d/t fever, neck pain/headache for multiple days. On evaluation in the hospital pt was found to have thrombocytopenia and leukopenia and hx that was consistent with tick borne illness. Pt had no meningeal signs, was completely alert and oriented despite having sx's for >3 days on admission and so meningitis was very low on the ddx and since pt had low platelets an LP was not done. Pt did well with doxycycline and most of his sx's resolved including the fever. Case was discussed with with ID and with hem/onc and they agreed with management. order some further work up for possible viral etiologies. Pt's pancytopenia improved as well and he wanted to really go home so plan was discussed to f/u with and as outpatient and this plan was okayed by and . Pt will finish out a 14 day course of doxycylince per recs from . Discussed with pt that most of the work up will not result for many more days so he should make sure to f/u with his physicians to go over lab results after discharge. Labs: Resulted-->procal 0.39, lactate wnls, crp 21, ldh 581, UA unremarkable, CXR report from OSH wnls, Viral resp neg Resulted-->HIV negative, EBV negative, hep panel negative Pending-->peripheral smear, parvo B19, [place] Pending-->Erlichia/anaplasmosis pcr, tularemia pcr, blood cx's NGTD Daily Summary 08/30/16 18:00 Pt admitted with sepsis with tick borne illness high on ddx, will do work up for tick borne and other infection while starting tx for tick borne illness. 08/31/16 10:32 Pt seems to be improving on doxycycline, will move to floor, cont. to monitor labs and f/u on work up ordered. 09/01/16 14:34 Pt seems to be improving on doxycycline, discussed case with and she agrees with the likely dx of tick borne disease and recommends monitoring pt for another 1-2 days to see improvement, also consulted hem/onc to see if any other etiology of pancytopenia should be considered. 09/02/16 12:36 Pt improving, hem/onc added more testing for viral etiologies, will discuss case with of ID and to come up with discharge plan for today or tomorrow. Discharge Plan - Med Rec/Dispo Referrals/Follow Up: Sancho Liao MD [Physician] - Barbara Fischer MD [Physician] - Additional Instructions: Follow-up on 09/09/16 with CBC, CMP, LDH at our office. Prescriptions: New Doxycycline [Vibramycin] 100 mg PO BIDWM #23 tab Discharge Instructions/Outpatient Orders: Final Provider Discharge Instructions Location: Determined By Patient - Disposition 01 Discharged Home, Self-Care
--- NOTE | 2016-09-02 14:58 | Progress Note ---
Oncology Subjective Reclining in hospital bed, mother at bedside. Verbalizes feeling improved today , has mild neck discomfort, this is a chronic problem for him intermittently. Has previously seen a chiropractor. Denies fever, chills, aching, new concerns today. He is eating and drinking normally. Normal voiding and normal stooling. General: No fever, no night sweats Eyes: No redness, no pain, no diplopia ENT: No mouth sores, no trouble swallowing Cardiac: No chest pain no palpitations Pulmonary: No cough, no shortness of breath, no wheezing Abdomen: No pain, no nausea vomiting, no diarrhea or constipation : No urgency, frequency, dysuria, or hematuria Musculoskeletal: Mild posterior neck discomfort Neurological: No headaches, no focal weakness Skin: No rash, no sores Psychiatric: No anxiety, no depression Exam Vital signs: Temp Pulse Resp BP Pulse Ox 96 F L 87 16 125/72 98 09/02/16 09:30 09/02/16 09:30 09/02/16 09:30 09/02/16 09:30 09/02/16 09:30 - Constitutional no acute distress, well developed, cooperative - Routine HEENT Exam Head: Present: normocephalic Eye: Present: EOMI, normal accommodation, conjunctivae pink ENT: Present: mucous membranes moist - Routine Respiratory Exam Absent: dyspnea, wheezes - Routine Cardiovascular Exam Present: RRR. Absent: no murmur - Routine Abdominal Exam Present: soft, normoactive bowel sounds. Absent: tenderness, non distended - Routine Extremities Exam Present: no edema, full ROM - Routine Skin Exam Present: intact, warm. Absent: rash - Routine Neurological Exam Present: alert, oriented X3, CN II-XII intact. Absent: sensory deficit, motor deficit - Routine Psychiatric Exam Present: normal affect Oncology Results - Labs CBC & Chem 7: 09/02/16 04:30 09/02/16 04:30 Labs: Short CBC 09/02/16 Range/Units 04:30 WBC 2.7 L (4.5-11.0) T/MM3 Hgb 15.0 (13.5-17.5) GM/DL Hct 44.1 (41-53) % Plt Count 105 L (130-400) T/MM3 [facility] 09/01/16 09/02/16 17:04 04:30 Sodium 146 H 144 Potassium 4.1 Chloride 104 Carbon Dioxide 27 BUN 13.0 Creatinine 0.9 D Glucose 96 Calcium 9.4 Liver Function 09/02/16 Range/Units 04:30 Albumin 4.5 (3.5-5.0) G/DL Assessment and Plan (1) Fever Status: Resolved Current Visit: Yes (2) Leukopenia Status: Acute Current Visit: Yes (3) Thrombocytopenia Status: Acute Current Visit: Yes Assessment and Plan: For neck pain, suggested ice therapy and demonstrated gentle stretching. If symptoms persist, see PCP or chiropractor. Slight improvement in WBC and platelets today. Hematology is okay with patient dismissal. Recommend follow-up with Dr. Liao in one week with CBC, CMP, LDH and results of serology, and peripheral smear. Discussed with patient. He has no questions. - Time Spent With Patient Total time spent is greater than 50% in coordination of care (as documented) at patient's floor/unit and/or counseling patient: 25 - 35 minutes Sepsis Assessment - Evaluation Sepsis screening result: Sepsis Risk
== END 2016-09-02 16:40 | disposition home or self-care (01) | DRG 872 ==
LOC: CCU 15:50 → MED 08-31 10:48
PROVIDERS: ADMIT Internal Medicine; ATTEND Internal Medicine